=== PATIENT | male | born 1960 | race Caucasian/White ===

== ENCOUNTER 2019-02-04 08:02 | Observation (INO) ==
[2019-02-04] MEDS ORDERED: VANCOMYCIN INJ 1,500 MG in SODIUM CHLORIDE 0.9% 500 ML IV STA (08:37)
[2019-02-04 09:21] LABS: Basophils # 0.1 10*3/uL (0.0-0.2); Basophils % 0.6 % (0.0-0.8); Eosinophils # 0.2 10*3/uL (0.0-0.87); Eosinophils % 1.5 % (0.00-10.9); Hematocrit 42.9 VOL% (42.0-52.0); Hemoglobin 14.3 GM/DL (14.0-18.0); Immature Granulocytes % 0.6 %; Immature Granulocytes Absolute 0.07 #; Lymphocytes # 1.8 10*3/uL (1.4-4.0); Lymphocytes % 14.7 % (21.2-54.2); Mean Corpuscular HGB Conc 33.3 GM/DL (32-36); Mean Corpuscular Volume 91.1 FL (87-102); Mean Platelet Volume 10.3 FL (9.6-12.0); Monocytes % 9.1 % (1.7-12.7); Neutrophils % 73.5 % (38.7-73.9); Platelet Count 252 T/CUMM (130-400); Red Blood Count 4.71 MC/CUMM (3.8-5.5); White Blood Count 12.2 T/CUMM (4-12)
[2019-02-04 09:45] LABS: Calcium 8.7 MG/DL (8.5-10.1); Osmolality,Calculated 280.4 MOS/KG (273-304)
[2019-02-04] MEDS ORDERED: ZALEPLON 5 MG CAPSULE PO PRN (11:20)
[2019-02-04] MEDS ORDERED: ACETAMINOPHEN 325 MG TABLET PO PRN (11:20)
[2019-02-04] MEDS ORDERED: PROMETHAZINE 25 MG TABLET PO PRN (11:20)
[2019-02-04] MEDS ORDERED: MORPHINE 4 MG/1 ML VIAL IV PRN (11:20)
[2019-02-04] MEDS ORDERED: ALPRAZolam 0.25 MG TABLET PO PRN (11:35)
[2019-02-04] MEDS: HEPARIN 5,000 UNIT/1 ML VIAL SUBCUT SCH ×2 (13:48→20:52)
[2019-02-04] MEDS: PIPERACILLIN/TAZOBACTAM 3,375 MG in SODIUM CHLORIDE 0.9% 100 ML IV SCH ×2 (13:49→18:56)
[2019-02-04] MEDS: VANCOMYCIN INJ 2,000 MG in SODIUM CHLORIDE 0.9% 500 ML IV SCH (23:03)
[2019-02-05] MEDS: PIPERACILLIN/TAZOBACTAM 3,375 MG in SODIUM CHLORIDE 0.9% 100 ML IV SCH ×3 (03:29→20:32)
[2019-02-05] MEDS ORDERED: FAMOTIDINE 20 MG TABLET PO ONE (06:00)
[2019-02-05 06:27] LABS: Basophils # 0.1 10*3/uL (0.0-0.2); Basophils % 0.5 % (0.0-0.8); Eosinophils # 0.3 10*3/uL (0.0-0.87); Eosinophils % 2.4 % (0.00-10.9); Hematocrit 42.1 VOL% (42.0-52.0); Hemoglobin 13.8 GM/DL (14.0-18.0); Immature Granulocytes % 0.6 %; Immature Granulocytes Absolute 0.06 #; Lymphocytes # 2.1 10*3/uL (1.4-4.0); Lymphocytes % 20.6 % (21.2-54.2); Mean Corpuscular HGB Conc 32.8 GM/DL (32-36); Mean Corpuscular Volume 92.9 FL (87-102); Mean Platelet Volume 11.1 FL (9.6-12.0); Monocytes % 9.4 % (1.7-12.7); Neutrophils % 66.5 % (38.7-73.9); Platelet Count 240 T/CUMM (130-400); Red Blood Count 4.53 MC/CUMM (3.8-5.5); Red Cell Distribution Width 13.2 % (9.3-17.3); White Blood Count 10.3 T/CUMM (4-12)
[2019-02-05 06:43] LABS: Albumin 3.2 G/DL (3.4-5.0); Bilirubin,Total 0.8 MG/DL (0.2-1.0); Calcium 8.6 MG/DL (8.5-10.1); Osmolality,Calculated 282.3 MOS/KG (273-304)
[2019-02-05 06:53] LABS: Risk Ratio 2.26; VLDL CHOLESTEROL 33.8 MG/DL
[2019-02-05] MEDS ORDERED: BUPIVACAINE 0.5% 50 ML VIAL ONE (07:49)
[2019-02-05] MEDS ORDERED: HYDROmorphone 2 MG/1 ML VIAL IV PRN (07:51)
[2019-02-05] MEDS ORDERED: ONDANSETRON 4 MG/2 ML VIAL IV PRN (07:51)
[2019-02-05] MEDS ORDERED: PROPOFOL 200 MG/20 ML VIAL IV ONE (08:12)
[2019-02-05] MEDS ORDERED: fentaNYL 100 MCG/2 ML VIAL ONE (08:12)
[2019-02-05] MEDS ORDERED: LIDOCAINE 2% 5 ML VIAL ONE (08:12)
[2019-02-05] MEDS ORDERED: SEVOFLURANE 1 UNIT/15 MINUTE INH ONE (08:12)
[2019-02-05] MEDS ORDERED: ACETAMINOPHEN 1,000 MG/100 ML VIAL IV ONE (08:13)
[2019-02-05] MEDS ORDERED: ONDANSETRON 4 MG/2 ML VIAL ONE (08:13)
[2019-02-05] MEDS ORDERED: MIDAZOLAM 2 MG/2 ML VIAL ONE (08:13)
[2019-02-05] MEDS: PANTOPRAZOLE 40 MG TABLET PO SCH (09:09)
[2019-02-05] MEDS: VANCOMYCIN INJ 2,000 MG in SODIUM CHLORIDE 0.9% 500 ML IV SCH (09:09)
[2019-02-05] MEDS ORDERED: OMEGA 3 ACID ETHYL ESTERS 1 GM CAPSULE PO SCH (21:00)
[2019-02-05] MEDS ORDERED: ATORVASTATIN 40 MG TABLET PO SCH (21:00)
[2019-02-06] MEDS: VANCOMYCIN INJ 2,000 MG in SODIUM CHLORIDE 0.9% 500 ML IV SCH (00:39)
[2019-02-06] MEDS: PIPERACILLIN/TAZOBACTAM 3,375 MG in SODIUM CHLORIDE 0.9% 100 ML IV SCH (04:45)
[2019-02-06] MEDS: HEPARIN 5,000 UNIT/1 ML VIAL SUBCUT SCH (04:50)
[2019-02-06] MEDS ORDERED: LISINOPRIL 20 MG TABLET PO SCH (09:00)
[2019-02-06] MEDS: PANTOPRAZOLE 40 MG TABLET PO SCH (09:42)
[2019-02-06 12:23] VITALS: BP 146/74
== END 2019-02-06 12:55 | disposition home or self-care (01) ==
LOC: N.EDINP 08:02 → N.ED 08:02 → SUATTDRO 11:20 → N.EDINP 11:52 → N.2E 12:10
PROVIDERS: ADMIT Internal Medicine; ATTEND Internal Medicine